=== PATIENT | female | born 1995 | race Caucasian/White ===

== ENCOUNTER → 2023-06-12 15:49 | Outpatient (CLI) | payer OTHER, SELFPAY ==
[2023-06-12 20:16] LABS: Urine N gonorrhoeae NOT DETECTED
[2023-06-12 20:59] LABS: Urine Chlamydia NOT DETECTED
== END ==
PROVIDERS: PCP Family Medicine; Visit Provider Obstetrics & Gynecology
DX: Z34.01 Encounter for supervision of normal first pregnancy, first trimester (principal); Z3A.09 9 weeks gestation of pregnancy
CPT/HCPCS: 87491; 87591

== ENCOUNTER → 2023-08-15 09:41 | Outpatient (CLI) | payer OTHER, SELFPAY ==
[2023-08-15 10:55] LABS: Hemoglobin A1C% w Est Avg Glu 4.8 % (4.0-6.0)
[2023-08-16 08:36] LABS: Varicella IgG Antibody 674 index (Immune >165)
[2023-08-21 10:09] LABS: AFP Value 109.1 ng/mL (.); Insulin Dep Diabetes No (.); OSBR Risk 1IN 363 (.); Results Report (.); Test Results *Screen Negative* (.)
== END ==
PROVIDERS: PCP Family Medicine; Referring Provider Obstetrics & Gynecology; Visit Provider Obstetrics & Gynecology
DX: Z34.02 Encounter for supervision of normal first pregnancy, second trimester (principal); Z3A.19 19 weeks gestation of pregnancy; E28.2 Polycystic ovarian syndrome
CPT/HCPCS: 36415; 82105; 83036; 86787

== ENCOUNTER → 2023-08-23 07:03 | Outpatient (CLI) | payer OTHER, SELFPAY ==
--- NOTE | 2023-08-23 07:04 | DI.US.S_ITS ---
PROCEDURE: US OB >= 14 WEEKS FETUS INDICATIONS: ANATOMY OUTSIDE/PRIOR DATING DATA: Last menstrual period (LMP): Not available. LMP-based estimated date of delivery (RITA): Not available. First dating scan (date and location): Not available. Estimated date of delivery (RITA) from first dating scan: Not available. The calculations are made using provided clinical RITA of 01/02/2024. TECHNIQUE: Real-time scanning was performed of the fetus, with image documentation and biometric measurements. COMPARISON: None. FINDINGS: General: A single living intrauterine gestation is present. Presentation: Vertex. Placenta: Placental position is anterior and low-lying. The inferior margin of the placenta measures 1.4 cm from internal os. Amniotic fluid index: 10 point cm. Single deepest vertical pocket is 3.6 cm. heart rate: 124 beats per minute. Maternal cervical canal: 3.7 cm long. Normal lower limit is 2.5 cm. biometrics: Biparietal diameter: 20 weeks 1 day Head circumference: 20 weeks 1 day Abdominal circumference: 21 weeks 0 day Femur length: 20 weeks and 1 day Clinically estimated gestational age: 20 weeks 1 day Composite gestational age from present scan: 20 weeks 3 days Estimated weight and percentile: 360 g; 59% for gestational age. Anatomic survey: Neuro: Ventricles are non-dilated at less than 10 mm. Cisterna magna is normal at 3-11 mm. Cerebellum is normal in size and morphology. Nuchal skin fold: Normal at less than 6 mm between 14-21 weeks gestational age. Face: Nose and lips, facial profile are normal. Spine: No evidence for spina bifida. Heart: 4-chambered heart is present, with normal ventricular outflow tracts. Diaphragm: Diaphragm is intact. Stomach: Left-sided stomach is present. Kidneys: No hydronephrosis. Normal is less than 5 mm in 2nd trimester, less than 7 mm in 3rd trimester. Cord: 3-vessel cord has orthotopic insertion. Bladder: Normal in size. Extremities: All 4 extremities identified. IMPRESSION: 1. A single living intrauterine gestation with appropriate interval growth. 2. Normal anatomic survey. 3. Low-lying placenta. The inferior tip of the placenta measures 1.4 cm from the internal os. We strive to produce accurate, complete, and clear reports of imaging services. To assist us in improving patient care, this report was composed using standard report templates and voice recognition software. Therefore, it may contain abnormal punctuation, insertions and/or omissions. Occasional wrong-word or sound-alike substitutions may occur. Though we review the report and make efforts to correct it, we do recommend that the report be read carefully in proper context to recognize any text inaccuracies. Dictated by: Felipa Madrid M.D. on 08/23/2023 at 15:35 Approved by: Felipa Madrid M.D. on 08/23/2023 at 15:39
== END ==
LOC: US 07:03
PROVIDERS: PCP Family Medicine; Referring Provider Obstetrics & Gynecology; Visit Provider Obstetrics & Gynecology
DX: O44.42 Low lying placenta NOS or without hemorrhage, second trimester (principal); Z3A.20 20 weeks gestation of pregnancy
CPT/HCPCS: 76811

== ENCOUNTER → 2023-10-09 09:52 | Outpatient (CLI) | payer OTHER, SELFPAY ==
[2023-10-09 11:44] LABS: Hematocrit 33.5 % (36-46); Hemoglobin 11.5 g/dL (12.0-16.0)
[2023-10-09 12:24] LABS: GTT (PREG) 1 Hour PP 50gm Dose 69 mg/dL (76-139)
== END ==
PROVIDERS: Specialist; PCP Family Medicine; Referring Provider Obstetrics & Gynecology; Visit Provider Obstetrics & Gynecology
DX: Z34.02 Encounter for supervision of normal first pregnancy, second trimester (principal); Z3A.26 26 weeks gestation of pregnancy
CPT/HCPCS: 36415; 82950; 85014; 85018

== ENCOUNTER → 2023-12-24 15:25 | Outpatient (CLI) | payer OTHER, SELFPAY ==
[2023-12-25 13:28] LABS: Strep Grp B PCR NEG for Grp B Strep
== END ==
PROVIDERS: PCP Family Medicine; Visit Provider Obstetrics & Gynecology
DX: Z34.03 Encounter for supervision of normal first pregnancy, third trimester (principal); Z3A.37 37 weeks gestation of pregnancy
CPT/HCPCS: 87653

== ENCOUNTER 2024-01-09 02:32 | Inpatient (IN) | payer OTHER, SELFPAY ==
[2024-01-09] MEDS: MORPHINE 10 MG/ML INJ 6 MG IM (06:08)
--- NOTE | 2024-01-09 08:39 | PM.OBHP.IH.1 ---
OB HPI Date/Time Date of admission: 01/09/24 Date Patient Seen: 01/09/24 Time Patient Seen: 08:39 History of Present Condition Chief complaint: Labor RITA Calculator Estimated Delivery Date Method Current WG Current Estimate 01/09/24 LMP (Certain) 40w 0d Other Estimates 01/10/24 Ultrasound #1 39w 6d 01/08/24 Ultrasound #2 40w 1d Estimated Gestational Age (weeks): 40 : 1 Para: 0 care: good care, initiated at week # (9), number of visits (10) and pounds weight gain (21) Dating criteria OB: LMP confirmed by 1st trimester US Ultrasounds: normal 1st trimester US and normal mid trimester US Obstetrical complications: none Medical complications OB: none Preadmission Labs Last OB Lab Results: Blood Type O Positive 01/09/24 09:15 Antibody Screen Negative 01/09/24 09:15 Hematocrit 40.4 % (36-46) 01/09/24 09:15 Hemoglobin 13.6 g/dL (12.0-16.0) 01/09/24 09:15 Varicella-Zoster IgG Antibody 674 index (Immune >165) 08/15/23 10:15 Glucose 1 Hour 69 mg/dL (76-139) L 10/09/23 11:08 Group B Streptococcus (PCR) Neg for grp b strep 12/24/23 15:25 -: Chlamydia screen: negative, Gonorrhea screen: negative and Urine: negative Genetic Screens: Cell-free DNA: Normal and Alpha-fetoprotein: Normal External Labs -: Urine: negative Evaluation Evaluation Baseline heart rate: 135 Variability: Moderate (11-25) monitor accelerations: Present Monitor Decelerations: Absent Contraction Frequency (minutes): 4 Uterine Contraction Intensity: Moderate Status: Category l Dilation (cm): 3 Effacement (%): 85 station: 0 Position of cervix: mid Consistency: medium [facility] Medical History (Updated 12/24/23 @ 16:09 by Arelis Omer MD) Depression (~2019) Anorexia nervosa (~2011) Herpes (~1997) Chicken pox (~2013) Painful menstrual periods (~2008) Irregular menstrual cycle (~2020) PCOS (polycystic ovarian syndrome) (~2020) Recurrent major depressive disorder Generalized anxiety disorder (~2011) Bilateral ureteral reflux Recurrent UTI Surgical History (Updated 07/11/23 @ 21:22 by Lindsay Connell) Anesthesia [place] teeth extracted (~2014) History of kidney surgery Family History (Updated 07/11/23 @ 21:27 by Lindsay Connell) Mother Breast cancer blood loss Father Generalized anxiety disorder Grandfather Alzheimer disease Glaucoma Grandfather Alzheimer disease Glaucoma Grandmother Breast cancer Abnormal stillborn Grandmother Colon cancer Brother Generalized anxiety disorder Uncle Depression Grandfather Pneumonia Social History marital status: number of children: 0 household members: spouse lives independently: Yes caregiver/support person: No housing: house pets and animals: Yes (2 dogs, cat, chickens) education level: college occupational status: employed current occupational exposures/hazards: No special rea needs: No travel history: over 6 months ago seatbelt use: always helmet use: Yes water heater temp set < 120 deg: Yes working smoke detector in home: Yes fire extinguisher in home: No carbon monox detector in home: Yes firearms in home: No do you feel safe at home: Yes Smoking Status: Unknown if ever smoked second hand exposure: Yes ( smokes MJ) alcohol intake: former substance use type: marijuana during the past year weight has: increased > 10 lbs well-balanced diet: daily or most days daily servings fruits/ve-4 caffeine: Yes (occasional coffee/tea in AM) Type(s) of exercise: aerobic and weight lifting frequency: 3-4 times per week Meds Home Medications and Allergies Home Medications Medication Instructions Recorded Confirmed Type escitalopram oxalate 10 mg tablet 15 mg PO DAILY 06/04/23 01/09/24 History lamotrigine 50 mg tablet,extended 50 mg PO DAILY 06/04/23 01/09/24 History release 24 hr vitamin-ferrous sulfate tab PO 06/04/23 01/02/24 History 27 mg iron-folic acid 0.8 mg tablet RSVPreF3 antigen-AS01E 0.5 ml IM ONCE #1 ea 11/07/23 01/02/24 Rx adjuvant(PF) 120 mcg/0.5 mL IM suspension, kit omeprazole 40 mg capsule,delayed 40 mg PO BID Heartburn #30 caps 11/23/23 01/09/24 Rx release Allergies Allergy/AdvReac Type Severity Reaction Status Date / Time azithromycin Allergy Intermediate Swelling Verified 01/02/24 08:58 OB Exam Narrative Exam Narrative: Generally: Patient is sitting up in bed, tearful, no acute distress Fundus: 39 cm Estimated weight: 7-1/2 lb Extremities: Trace edema Objective Labs 01/09/24 09:15 Assessment and Plan Assessment and Plan Assessment and Plan narrative: Assessment: 28-year-old 1 para 0 at 40 weeks gestation in early labor Plan: Admit to the center Nitrous oxide as needed Epidural as necessary We will reassess in a few hours to see if progressing Time Spent with Patient Total time spent with greater than 50% in coordination of care (as documented) at patient's floor/unit and/or counseling patient:: 15-24 minutes
[2024-01-09 09:33] LABS: Add Manual Diff / Slide Review NO; Basophils Absolute Auto 100 /uL (0-100); Basophils Percent Auto 0.5 % (0-2); Eosinophils Absolute Auto 0 /uL (0-450); Eosinophils Percent Auto 0.2 % (2-4); Hematocrit 40.4 % (36-46); Hemoglobin 13.6 g/dL (12.0-16.0); Lymphocytes Absolute Auto 1400 /uL (1100-4500); Lymphocytes Percent Auto 10.6 % (25-40); Mean Corpuscular HGB Conc 33.7 % (30-36); Mean Corpuscular Hemoglobin 32.4 PG (26-34); Mean Corpuscular Volume 96.2 fL (80-100); Monocytes Absolute Auto 300 /uL (0-900); Monocytes Percent Auto 2.5 % (3-14); Neutrophils Absolute Auto 11500 /uL (1500-7000); Neutrophils Percent Auto 86.2 % (50-75); Platelet Count 167 X10^3/uL (150-400); Red Cell Distribution Width 13.7 % (11.6-14.8); White Blood Cell Count 13.3 X10^3/uL (4.5-11.0)
[2024-01-09 10:46] VITALS: BP 123/79
--- NOTE | 2024-01-09 12:59 | PM.OBPNLAB ---
Date/Time Date Patient Seen: 01/09/24 Time Patient Seen: 11:55 Pain Control Pain control: other (Nitrous oxide) Pelvic Exam Effacement (%): 85 station: 0 Comments: Deferred VE Contractions Contractions on admission: regular Monitor mode: External Contraction frequency (min): 3 Contraction duration (min): 1 Contraction pattern: Regular Contraction intensity: Strong/Firm Status status: Category l Heart Rate Baseline: 135 Monitor Accelerations: Present Monitor Decelerations: Absent Monitor Variability: Moderate Assessment and Plan Assessment: other (Early to active labor) Plan: continuous present management Comments: Declines VE at this time Expectant management Conside AROM if no progress
--- NOTE | 2024-01-09 14:26 | PM.OBPNLAB ---
Date/Time Date Patient Seen: 01/09/24 Time Patient Seen: 14:26 Pain Control Pain control: other (Nitrous oxide, patient reports that it is not working as well) Pelvic Exam Dilation (cm): 4 Effacement (%): 100 station: 0 Amniotic membrane status: Bulging Contractions Contractions on admission: irregular Monitor mode: External Contraction frequency (min): 3 Contraction duration (min): 1 Contraction pattern: Regular Contraction intensity: Strong/Firm Status status: Category l Heart Rate Baseline: 135 Assessment and Plan Assessment: active labor Comments: Assessment: Spontaneous rupture of membranes with meconium-stained amniotic fluid after vaginal exam Suspect occiput posterior presentation Plan: Epidural as necessary Position changes Expected management to spontaneous vaginal deliveries
[2024-01-09] MEDS: fentaNYL 100 MCG/2 ML INJ 50 MCG IV (14:45)
[2024-01-09] MEDS: LACTATED RINGERS 1,000 ML 100 ML IV ×3 (14:52→17:39)
--- NOTE | 2024-01-09 15:05 | PM.AN.REGBLK ---
Regional Block Pre-procedure Procedure: Continuous Lumbar Epidural for L&D Attending OB provider: Arelis Omer PMH/ROS narrative: term labor, no obstetric complicaitons. PMH JULIETA and depression, well controlled with escitalopram and lamotrigine. ASA Class: II Labs: Hct 40.4 % (36-46) 01/09/24 09:15 Plt Count 167 X10^3/uL (150-400) 01/09/24 09:15 Medications: Current Medications Generic Name Dose Route Start Last Admin Trade Name Freq PRN Reason Stop Dose Admin Carboprost Tromethamine 250 mcg 01/09/24 08:40 Carboprost 250 Mcg/Ml Ampul IM Q90M PRN Bleeding Diphenhydramine HCl 25 mg 01/09/24 15:03 Diphenhydramine 50 Mg/Ml Vial IV Q10M PRN Pruritis Fentanyl 50 mcg 01/09/24 08:40 01/09/24 14:45 Fentanyl 100 Mcg/2 Ml Inj IV 50 mcg Q1H PRN Administration Pain, Moderate (4-6) Lactated Ringer's 1,000 mls @ 100 mls/hr 01/09/24 08:45 01/09/24 14:52 Lactated Ringers IV 100 mls/hr CONT KALEY Administration Oxytocin/Lactated Ringer's 30 unit in 500 mls @ 200 mls/hr 01/09/24 08:40 Oxytocin Premix IV CONT PRN Bleeding Protocol Tranexamic Acid 1,000 mg/ 100 mls @ 200 mls/hr 01/09/24 08:40 Sodium Chloride IV NOW PRN Bleeding FENT 2MCG/ML BUPIV 0.125% EPI 200 mcg in 100 mls @ 6 mls/hr 01/09/24 15:15 Fentanyl/Bupiv/Ns 2mcg/Ml - 0.125% EPIDURAL CONT KALEY Lidocaine HCl 20 ml 01/09/24 08:40 Lidocaine 1% 20 Ml INJ INTRA-OP PRN Post Delivery Methylergonovine Maleate 0.2 mg 01/09/24 08:40 Methylergonovine 0.2 Mg Tablet PO Q6HR PRN Heavy Bleeding Methylergonovine Maleate 0.2 mg 01/09/24 08:40 Methylergonovine 0.2 Mg/Ml Vial IM NOW PRN Bleeding Misoprostol 800 mcg 01/09/24 08:40 Misoprostol 200 Mcg Tablet VA NOW PRN Bleeding Misoprostol 400 mcg 01/09/24 08:40 Misoprostol 200 Mcg Tablet SL NOW PRN Bleeding Nalbuphine HCl 2.5 mg 01/09/24 15:03 Nalbuphine 20 Mg/Ml Ampul IV Q10M PRN Pruritis Naloxone HCl 0.2 mg 01/09/24 08:40 Naloxone 0.4 Mg/Ml Vial IV Q2MIN PRN Opiate Reversal Oxytocin 10 unit 01/09/24 08:40 Oxytocin 10 Unit/Ml Vial IM NOW PRN Bleeding Sodium Chloride 10 ml 01/09/24 09:00 Sodium Chloride 0.9% Flush IV BID KALEY Sodium Chloride 10 ml 01/09/24 08:40 Sodium Chloride 0.9% Flush IV PRN PRN Flush Sodium Chloride 10 ml 01/09/24 21:00 Sodium Chloride 0.9% Flush IV BID KALEY Sodium Chloride 10 ml 01/09/24 15:03 Sodium Chloride 0.9% Flush IV PRN PRN Flush Allergies: Allergies Allergy/AdvReac Type Severity Reaction Status Date / Time azithromycin Allergy Intermediate Swelling Verified 01/02/24 08:58 Procedure Insertion date: 01/09/24 Prep/Local: betadine x3 and 1% lidocaine Interspace: L3-4 Patient position: sitting Needle: 18 gauge HF Food Technologiestead (CSE: 27g Pencan through Hustead, 1mL 0.25% bupiv) Loss of resistance with: saline NICOLAS at (cm): 5 Catheter placed at SKIN (cm): 11 Catheter in SPACE (cm): 6 Insertion: No CSF, No Blood, No Paresthesia with insertion, No Paresthesia with injection and No Test dose reaction Initial Medications TEST DOSE time: 16:08 TEST DOSE: 1.5% lidocaine with epinephrine 1:200k (mL): 3 BOLUS DOSE time: 16:19 BOLUS DOSE (mL): 4 BOLUS DOSE med: other (infusate) Infusion INFUSION: 0.125% bupivacaine and with fentanyl 2 mcg/mL Initial rate (mL/hr): 8 Subsequent interventions: PCEA@8+4 Post-procedure Anesthesia date START: 01/09/24 Anesthesia time START: 16:00 Anesthesia date END: 01/09/24 Anesthesia time END: 21:25 Post-procedure Anesthesia Assessment: Yes CV function: HR/BP stable, Yes Resp function: RR/sat/airway adequate, Yes Post-op hydration adequate, Yes Pain control adequate, Yes Nausea & vomiting absent, Yes Temperature > 36 C, Yes Mental status appropriate and No Anesthesia complications
[2024-01-09] MEDS: OXYTOCIN PREMIX 30 UNIT/500 ML PLAST..BAG IV (17:37)
--- NOTE | 2024-01-09 20:04 | PM.OBPNLAB ---
Date/Time Date Patient Seen: 01/09/24 Time Patient Seen: 20:04 Pain Control Pain control: epidural Pelvic Exam Dilation (cm): 10 Effacement (%): 100 station: +2 Amniotic membrane status: Ruptured Comments: Meconium stained amniotic fluid Contractions Contractions on admission: regular Monitor mode: External Pitocin rate (mU/min): 4 Contraction frequency (min): 3 Contraction duration (min): 1 Contraction pattern: Regular Contraction intensity: Strong/Firm Status status: Category l Heart Rate Baseline: 135 Monitor Accelerations: Present Monitor Decelerations: Absent Monitor Variability: Moderate Assessment and Plan Assessment: other (Entering second stage) Comments: Begin pushing Expectant management to
--- NOTE | 2024-01-09 21:49 | P.PCNOB_ITS ---
Events: Labor Augmentation and Meconium Stained Fluid Labor & Delivery Delivery date: 01/09/24 Intrapartal Events: None Cervical ripening method: none Induction method: none Delivery augmentation: pitocin Delivery monitor: external FHT and external uterine Route of delivery: Episiotomy description: None L&D Laceration Description: Perineal - 1st Degree and Vaginal - 1st Degree Quantitative Blood Loss: 50 Anesthesia Type: Epidural Complications: None Narrative: Patient complete and pushed for 25 minutes. At 9:17 p.m., a live female delivered spontaneously in the GUERLINE presentation, over an intact perineum. A loose nuchal cord x2 were reduced on the perineum. The remainder of the body delivered without difficulty and was placed on mom's abdomen. Pitocin was given in the IV fluids. The cord was double clamped and cut after the cord stopped pulsing. Cord bloods were obtained. The placenta delivered intact with a three-vessel cord at 9:32 p.m. The fundus was massaged to firm. A first-degree vaginal/perineal laceration was repaired in the usual fashion with 2-0 Vicryl. Hemostasis was achieved. QBL 50 cc. Apgars 8 at 1 minute and 9 at 5 minutes. Epidural analgesia. . Mom and infant stable to recovery. [place] Baby 1: Infant gender: Female Presentation: vertex Position: Left Occiput Anterior Placenta delivery description: Spontaneous Cord Vessel Description: 3 Vessels, Nuchal Cord (x2), Loose and Clamped/Cut (After the cord stopped pulsing) score (1 min): 8 score (5 min): 9 weight: 6 lb 7.4 oz Plan for aftercare: Routine care
[2024-01-09] MEDS: IBUPROFEN 600 MG TABLET PO (23:09)
[2024-01-09] MEDS: ACETAMINOPHEN 325 MG TABLET 650 MG PO (23:10)
[2024-01-10 06:06] LABS: Add Manual Diff / Slide Review NO; Basophils Absolute Auto 0 /uL (0-100); Basophils Percent Auto 0.3 % (0-2); Eosinophils Absolute Auto 0 /uL (0-450); Eosinophils Percent Auto 0.2 % (2-4); Hematocrit 34.8 % (36-46); Hemoglobin 11.7 g/dL (12.0-16.0); Lymphocytes Absolute Auto 1900 /uL (1100-4500); Lymphocytes Percent Auto 11.5 % (25-40); Mean Corpuscular HGB Conc 33.8 % (30-36); Mean Corpuscular Hemoglobin 32.2 PG (26-34); Mean Corpuscular Volume 95.4 fL (80-100); Monocytes Absolute Auto 700 /uL (0-900); Monocytes Percent Auto 4.4 % (3-14); Neutrophils Absolute Auto 13600 /uL (1500-7000); Neutrophils Percent Auto 83.6 % (50-75); Platelet Count 135 X10^3/uL (150-400); Red Blood Cell Count 3.64 X10^6/uL (4.0-5.2); Red Cell Distribution Width 14.1 % (11.6-14.8); White Blood Cell Count 16.2 X10^3/uL (4.5-11.0)
[2024-01-10] MEDS: ACETAMINOPHEN 325 MG TABLET 650 MG PO ×2 (08:16→14:05)
[2024-01-10] MEDS: PRENATAL VIT,CALC/IRON/FOLIC 1 TABLET 1 TAB PO (08:17)
[2024-01-10] MEDS: IBUPROFEN 600 MG TABLET PO ×2 (08:17→14:06)
[2024-01-10] MEDS: ESCITALOPRAM 10 MG TABLET 15 MG PO (08:18)
[2024-01-10] MEDS: DOCUSATE 100 MG CAPSULE PO (08:18)
[2024-01-10] MEDS: LANOLIN OINT 7 GM 1 APPLIC TOP (12:59)
--- NOTE | 2024-01-10 13:25 | PM.OBDS.1 ---
Discharge Providers Provider Date of admission: 01/09/24 02:32 Discharge Date: 01/10/24 Primary care physician: Dolores Whelan MD Consults: 01/09/24 08:40 Consult to Anesthesiology Urgent Comment: Consulting Provider: Anesthesiologist Reason for consultation: Epidural 01/10/24 21:23 Consult to Aircraft Delivery Checker Routine Comment: 01/10/24 21:46 Consult to Aircraft Delivery Checker Routine Comment: Discharge provider: Arelis Omer MD Summary Hospital Course Date Patient Seen: 01/10/24 Time Patient Seen: 13:25 Diagnoses: Forty weeks' gestation Spontaneous vaginal delivery First-degree vaginal/perineal laceration and repair Epidural analgesia Pitocin augmentation of labor Hospital Course: Patient is a 28-year-old 1 para 1 who presented on January 09, 2024 in early labor. Initially she used nitrous oxide for pain relief. After one of the vaginal exams, there was incidental rupture of membranes with meconium-stained amniotic fluid. She received an epidural for pain management. She progressed to complete dilation and after 25 minutes of pushing had a spontaneous vaginal delivery without complication. On day # 1, is going well. Bleeding is minimal. She is ambulating without assistance. Peripartum Data Infant Delivery Method: Natural Vaginal Laceration Description: Perineal - 1st Degree and Vaginal - 1st Degree Procedures: Epidural analgesia Spontaneous vaginal delivery Pitocin augmentation of labor First-degree vaginal/perineal laceration repair complications: none [place] 1: Gender: Female Status at Discharge Cognitive/behavioral status at discharge: oriented Functional status at discharge: independent ambulation Overall status at discharge: patient is progressing back to baseline Time Spent with Patient Time attestation: Total time spent providing and/or coordinating discharge services: Time spent: Less than 30 minutes Objective Labs 01/10/24 05:55 Labs: Laboratory Results - last 24 hr 01/10/24 05:55 WBC 16.2 H RBC 3.64 L Hgb 11.7 L Hct 34.8 L MCV 95.4 MCH 32.2 MCHC 33.8 RDW 14.1 Plt Count 135 L Neut % (Auto) 83.6 H Lymph % (Auto) 11.5 L [place] % (Auto) 4.4 Eos % (Auto) 0.2 L Baso % (Auto) 0.3 Neut # (Auto) 52796 H Lymph # (Auto) 1900 [place] # (Auto) 700 Eos # (Auto) 0 Baso # (Auto) 0 Exam Narrative Exam Narrative: Generally: Patient is sitting up in bed, no acute distress Fundus: Firm at U -1 Extremities: Trace edema, negative Hom[place] Discharge Plan Discharge Plan Provider Discharge Comment: Call with fever, chills, or bleeding vaginally more than a pad in an hour Ibuprofen 600 mg every 6 hours as needed Tylenol 650 mg every 6 hours as needed Push oral fluids Continue vitamins Discharge orders & Medications Discharge Orders: Discharge (Order); Ordered 01/10/24 Ordered By: Arelis Omer Prescriptions: Continued vit-ferrous sulfat-FA 27 mg iron- 0.8 mg tablet PO escitalopram oxalate 10 mg tablet 15 mg PO DAILY Discontinued RSVPreF3 antigen-AS01E (PF) 120 mcg/0.5 mL suspension for reconstitution 0.5 ml IM ONCE Qty: 1 0RF lamotrigine 50 mg tablet extended release 24hr 50 mg PO DAILY Patient Comments: Pt stopped taking this when she learned she was omeprazole 40 mg capsule,delayed release(DR/EC) 40 mg PO BID Qty: 30 3RF Rx Instructions: Take once or twice a day as needed for control of heartburn Follow up/Referrals: Arelis Omer MD [Physician] - Dolores Whelan MD [Primary Care Provider] - Diet/Activity/Treatments Diet: Regular Activity: Nothing in the vagina and till visit Skin/Wound/Dressing Care Report to your healthcare provider any signs of infection, such as:: chills, fever, increased pain and unusual drainage Visit Report/Discharge Packet Instructions: DI for Labor and Delivery, Vaginal Stand Alone Forms: Patient Portal/API, Stroke Signs & Symptoms Discharge Data Primary Care Provider: Dolores Whelan
[2024-01-10 15:05] VITALS: BP 122/71; PULSE 77; RESP 17; TEMP 36.4
[2024-01-10 15:16] VITALS: BP 122/71; PULSE 77; RESP 17; TEMP 36.4
== END 2024-01-10 17:54 | disposition home or self-care (01) | DRG 807 ==
PROVIDERS: Obstetrics & Gynecology; Admitting Provider Family Medicine; PCP Family Medicine; Referring Provider Family Medicine; Visit Provider Family Medicine
DX: O70.0 First degree perineal laceration during delivery (principal); Z37.0 Single live birth; Z3A.40 40 weeks gestation of pregnancy
CPT/HCPCS: 36415; 59050; 85025; 86850; 86900; 86901; G0379; J2270; J2590; J3010